=== PATIENT | male | born 1995 | race Caucasian/White ===

== ENCOUNTER 2022-12-10 03:19 | Emergency (ER) | payer BC ==
[~2022-12-10] VITALS: Ht 185.4 cm; Wt 59.0 kg
[2022-12-10] MEDS ORDERED: HYDROCODONE/APAP 10/325MG TABLET PO ONE (04:00)
[2022-12-10] MEDS ORDERED: KETOROLAC TROMETHAMINE INJ 60 MG/2 ML VIAL IM ONE (04:00)
[2022-12-10] MEDS ORDERED: HYDROCODONE/APAP 10/325MG TABLET ONE (04:05)
[2022-12-10] MEDS ORDERED: KETOROLAC TROMETHAMINE INJ 30 MG/ML VIAL ONE (04:05)
[2022-12-10] MEDS ORDERED: IBUP-1957 PO (05:22)
[2022-12-10] MEDS ORDERED: HYDR-3980 PO (05:22)
[2022-12-10 05:32] VITALS: BP 124/86; TEMP 98.5; O2SAT 100
[2022-12-12] MEDS ORDERED: HYDR-3980 PO (14:38)
== END 2022-12-10 05:32 | disposition home or self-care (01) ==
LOC: ER 03:33
DX: S92.061A Displaced intraarticular fracture of right calcaneus, initial encounter for closed fracture (principal); W13.8XXA Fall from, out of or through other building or structure, initial encounter; Y93.89 Activity, other specified; Y92.89 Other specified places as the place of occurrence of the external cause; Y99.8 Other external cause status
CPT/HCPCS: 99284; 29515; 96372; 73610; 73630; J1885